=== PATIENT | female | born 1955 | race Caucasian/White ===

== ENCOUNTER → 2023-05-12 07:14 | Outpatient (REF) | payer MEDICARE, OTHER, SELFPAY ==
[2023-05-12 09:40] LABS: ALT (SGPT) 20 U/L (0-35); AST (SGOT) 17 U/L (14-36); HDL Cholesterol 44 mg/dl; LDL Cholesterol, Calculated 71 mg/dl; Total Cholesterol 143 mg/dl (50-199); Triglyceride 141 mg/dl (10-149); Very Low Density Lipoprotein 28 mg/dl (0-30)
== END ==
LOC: HWLAB 07:14
PROVIDERS: ATTENDING PHYSICIAN Internal Medicine Cardiovascular Disease; FAMILY PHYSICIAN Family Medicine
DX: I25.10 Atherosclerotic heart disease of native coronary artery without angina pectoris (principal)
CPT/HCPCS: 36415; 80061; 84450; 84460

== ENCOUNTER → 2024-06-03 08:17 | Outpatient (REF) | payer MEDICARE, OTHER, SELFPAY | LOC: HWRCS 08:17 | PROVIDERS: ATTENDING PHYSICIAN Internal Medicine Cardiovascular Disease; FAMILY PHYSICIAN Family Medicine | DX: I25.10 Atherosclerotic heart disease of native coronary artery without angina pectoris (principal); I50.20 Unspecified systolic (congestive) heart failure; Z95.2 Presence of prosthetic heart valve | CPT/HCPCS: 93306 ==